=== PATIENT | female | born 1990 | race Caucasian/White ===

== ENCOUNTER 2017-07-20 00:08 | Emergency (ER) | payer OTHER, BC ==
--- NOTE | 2017-07-20 00:12 | ERNOTE ---
Animal Bite ER Date of Service: 07/20/17 Presenting Symptoms: bitten Time Seen by Provider: 07/20/17 00:11 Allergies/Adverse Reactions: Allergies tramadol Adverse Reaction (Intermediate, Verified 07/20/17 00:22) Nausea Home Medications: HOME MEDICATIONS Amox Tr/Potassium Clavulanate [Augmentin 875-125 Tablet] 1 each PO BID #14 tablet 07/20/17 [Last Taken Unknown] HYDROcodone/ACETAMINOPHEN [[place] 5-325] 1 - 2 tab PO Q6H PRN #12 tab 07/20/17 [ Last Taken Unknown] Insulin Glargine,Hum.rec.anlog [Basaglar Kwikpen U-100] 51 unit SQ DAILY [Last Taken Unknown] Insulin Lispro [Humalog] 5 unit SQ TID 07/20/17 [Last Taken Unknown] Multivitamin [One Daily Essential] 1 tab PO DAILY 07/20/17 [Last Taken Unknown] Narrative: This is a 56-year-old female who comes to the emergency department approximately 30 minutes after being bit on the left medial thigh by a dog. She says this was an unprovoked attack, she was walking near [employer] when the dog attacked her. Apparently this is a dog who had an over there. The patient states that the bilingual office assistant tried to tell her that the dog only scratched her. She is complaining of pretty significant pain in her medial thigh on the left. She is an insulin-dependent diabetic. The patient has a couple of scratches to her right leg. Bleeding is controlled and stopped. No other complaints and this is not up-to-date Review of Systems - Review of Systems Constitutional: Present: no symptoms reported EYE: Present: no symptoms reported ENT: Present: no symptoms reported Respiratory: Present: no symptoms reported Cardiology: Present: no symptoms reported Gastrointestinal/Abdominal: Present: no symptoms reported Genitourinary: Present: no symptoms reported Musculoskeletal: Present: See HPI Skin: Present: See HPI Neurological: Present: no symptoms reported Endocrine: Present: no symptoms reported Hematologic/Lymphatic: Present: no symptoms reported Psych: Present: no symptoms reported Physical Exam - Physical Exam General Appearance: Present: wd/wn, alert, no apparent distress Head Exam: Present: normal inspection, no evidence of injury Eye Exam: Normal inspection: bilateral, PERRL: bilateral Ears, Nose, Throat: Present: normal ENT inspection Neck: Present: normal inspection Respiratory: Present: normal breath sounds, lungs clear Cardiovascular/Chest: Present: regular rate, rhythm Gastrointestinal/Abdominal: Present: nontender, soft Back Exam: Present: normal inspection, no vertebral tenderness Neurological Exam: Present: alert, oriented, normal mood/affect, no motor/ sensory deficits Skin Exam: Present: other - patient has multiple superficial abrasions to the right leg. Right calf and right thigh anteriorly. Patient has a 5 cm x 4 cm oval area to the left medial thigh which is damaged. There are 2 points where teeth entered on the more anterior aspect and one point on the posterior aspect. The tissue between appears macerated. There is no skin disruption except where the teeth punctured however there is an obvious contusion developing. No significant surrounding erythema yet. Lymphatic Exam: Present: no adenopathy ED Progress - Vital Signs Patient's Vital Signs:: I have reviewed the patient's vital signs. - Progress/Reassessment Chief Complaint: Animal Bite Plan - Plan Plan: Nursing staff is going to irrigate out the wounds with normal saline. I discussed with the patient the signs of infection. If any of these develop she is aware she needs to start the antibiotics. If she gets significant redness surrounding the wound, pus draining, or fever she should return to the ER for reevaluation. I'm giving the patient some [place] to help with symptom control in terms of pain. I will also give the patient a prescription for Augmentin. I'm giving her a single dose of Augmentin this evening. If she feels like it is getting worse or read and developing signs of infection such as fever or pus draining she will start the antibiotics. I have discussed with her importance of keeping the area clean and keeping an eye on it. The patient verbalized understanding. We will notify animal control. Departure Clinical Impression: Dog bite - Departure Disposition: Home self-care Condition: Stable Instructions: Animal Bite Additional Instructions: As we discussed, the important thing with a dog bite is to watch for signs of infection. If you develop fever, pus draining, or redness which starts moving up or down her thigh you need to return to the emergency department. I've given a medicine to help with pain. He may take this as needed. Do not drive or operate machinery until you know how this will effect. I've written a prescription for antibiotics as well as giving a single dose here in the ER. It is up T whether he wants start taking these immediately, or if you want to wait for 24 hours and see what happens. Most people would develop an infection will develop within 1-2 days. If you decide to wait, you need to start taking it the moment he have increased pain, redness, fever or pus. I want you to call your family doctor call your family doctor and set up a follow-up appointment. Return to the emergency department for any new or worrisome symptoms Prescriptions: Amox Tr/Potassium Clavulanate [Augmentin 875-125 Tablet] 1 each PO BID #14 tablet HYDROcodone/ACETAMINOPHEN [[place] 5-325] 1 - 2 tab PO Q6H PRN #12 tab PRN Reason: Pain
[2017-07-20] MEDS ORDERED: HYDROcodone/ACETAMINOPHEN 1 EACH TABLET PO ONE (00:20)
[2017-07-20] MEDS ORDERED: AMOX TR/POTASSIUM CLAVULANATE 875 MG TABLET PO ONE (00:20)
[2017-07-20] MEDS ORDERED: DIPHTH,PERTUSS(ACELL),TET VAC 0.5 ML VIAL IM ONE ×2 (00:34→00:36)
[2017-07-20] MEDS ORDERED: HYDROcodone/ACETAMINOPHEN 1 EACH TABLET ONE (00:43)
[2017-07-20] MEDS ORDERED: AMOX TR/POTASSIUM CLAVULANATE 875 MG TABLET ONE (00:43)
[2017-07-20 01:18] VITALS: BP 128/76
== END 2017-07-20 00:55 | disposition home or self-care (01) ==
LOC: EDBD → ER 00:08
DX: S70.372A Other superficial bite of left thigh, initial encounter (principal); S80.811A Abrasion, right lower leg, initial encounter; W54.0XXA Bitten by dog, initial encounter; Z23 Encounter for immunization